=== PATIENT | female | born 1960 | race Caucasian/White ===

== ENCOUNTER 2017-06-04 16:37 | Emergency (ER) | payer SELFPAY ==
--- NOTE | 2017-06-04 17:40 | ERNOTE ---
Medical Problem HPI - Narrative Date of Service: 06/04/17 - General Chief Complaint: General Assessment Time Seen by Provider: 06/04/17 17:14 Source: patient, RN notes reviewed Exam Limitations: no limitations - Immun/Allergies/Home Medications Immunizations: IMMUNIZATION HX Immunizations Up to Date Yes History of Influenza Vaccine No Hx Pneumococcal Vaccination No Allergies/Adverse Reactions: Allergies No Known Allergies Allergy (Verified 06/04/17 16:43) Home Medications: HOME MEDICATIONS Aspirin 81 mg PO DAILY 10/31/15 [Last Taken Unknown] - History of Present History Narrative: 56 year old female presents to the ED for multiple complaints - chest pain, bilateral lower extremity edema, cough, shortness of breath - then reports she has been having chest pain intermittently for a long time and that she always has a cough from smoking. She woke up today with edema in her left lower leg. It has improved throughout the day, but at some point she noticed a lump behind her knee. She states that other people have told her that it could be a blood clot and she should be evaluated. Date (Duration): 06/04/17 Review of Systems - Review of Systems Constitutional: Absent: recent illness, fever, chills, malaise EYE: Present: no symptoms reported ENT: Present: no symptoms reported Respiratory: Present: See HPI Cardiology: Present: See HPI Gastrointestinal/Abdominal: Absent: nausea, abdominal pain Genitourinary: Present: no symptoms reported Musculoskeletal: Present: muscle pain, joint pain Skin: Present: lumps. Absent: rash, lesions, change in color Neurological: Absent: weakness, numbness, tingling Endocrine: Present: no symptoms reported Hematologic/Lymphatic: Absent: easy bruising, easy bleeding, other - Hx of DVT Psych: Present: anxiety - Patient's Past Medical History Patient History - Medical: Diabetes Type 2, Depression Patient History - Cardiac/Respiratory: No pertinent hx Patient History - Cancer: Cervical, Ovarian Patient History - Surgical Procedures: Back Surgery, Hysterectomy, Other Patient History - Other: None - Social History Living Situations: home Abuse History: No History of abuse Psych History: Hx of Depression Smoking Status: Current every day smoker Alcohol Use: none Drug Use: none - Immunizations Immunizations Up to Date: Yes Hx Pneumococcal Vaccination: No History of Influenza Vaccine: No Physical Exam - Physical Exam General Appearance: Present: wd/wn, alert, no apparent distress, other - Disheveled Head Exam: Present: normal inspection Respiratory: Present: no respiratory distress, normal breath sounds, no accessory muscle use, lungs clear Cardiovascular/Chest: Present: regular rate, rhythm, no murmur, normal peripheral pulses Peripheral Pulses: N=norm/S=strong/W=weak/B=bound/A=absent: Dorsalis-pedis (R): Normal, Dorsalis-pedis (L): Normal Extremity Exam: Present: normal range of motion, no edema. Absent: calf tenderness, joint swelling Neurological Exam: Present: alert, oriented, normal mood/affect, no motor/ sensory deficits Skin Exam: Present: normal color, warm/dry, other - Palpable cystic lesion left posterior knee, mildly tender ED Progress - Vital Signs Patient's Vital Signs:: I have reviewed the patient's vital signs. Vital Signs: Vital Signs 06/04/17 16:38 Temperature 36.6 C Pulse Rate 97 Respiratory 12 Rate Blood Pressure 187/89 O2 Sat by Pulse 99 Oximetry - EKG EKG: NSR, RBBB EKG read: Reviewed by me - Progress/Reassessment Chief Complaint: General Assessment Progress:: Unchanged Plan - Plan Plan: Reassured patient that the lump behind her knee is not a DVT. Offered to perform diagnostic testing to verify this, patient reports not having insurance and not wanting additional tests as she did not feel that she had a DVT anyway. Departure Clinical Impression: Velásquez's cyst of knee Qualifiers: Laterality: left Qualified Code(s): M71.22 - Synovial cyst of popliteal space [ Velásquez], left knee - Departure Disposition: Home Follow Up Needed Condition: Stable Instructions: Velásquez Cyst Referrals: Albin Matos MD [Primary Care Provider] -
[2017-06-04 18:11] VITALS: BP 150/80
== END 2017-06-04 17:40 | disposition home or self-care (01) ==
LOC: ER 16:37
DX: M71.22 Synovial cyst of popliteal space [Baker], left knee (principal); Z85.43 Personal history of malignant neoplasm of ovary; Z85.41 Personal history of malignant neoplasm of cervix uteri; F17.200 Nicotine dependence, unspecified, uncomplicated